=== PATIENT | male | born 1940 | race Two or more races ===

== ENCOUNTER 2017-06-12 14:31 | Emergency (ER) | payer BC ==
[~2017-06-12] VITALS: Ht 182.9 cm; Wt 94.8 kg
[2017-06-12] MEDS ORDERED: cloNIDine HCL 0.1 MG TAB PO ONE (20:45)
[2017-06-12 20:51] LABS: Basophils # (auto) 0.1 uL; Hemoglobin 10.8 g/dL (13.5-17.5); Mean Corpuscular Volume 62.6 fL (80.0-100.0); Monocytes # (auto) 0.6 uL; Nucleated Red Blood Cells % 0.1 %; Red Cell Distribution Width 17.2 % (11.8-14.3)
[2017-06-12 20:52] LABS: Eosinophils # (auto) 0.3 uL; Eosinophils % (auto) 4.3 % (0.0-7.0); Hematocrit 34.2 % (41.0-53.0); Lymphocytes # (auto) 1.3 uL; Lymphocytes % (auto) 16.6 % (10.0-50.0); Mean Corpuscular Hemoglobin 19.9 pg (28.0-32.0); Mean Corpuscular Hgb Conc. 31.8 g/dL (32.0-36.0); Mean Platelet Volume 8.3 fL (6.9-10.8); Monocytes % (auto) 7.8 % (0.0-12.0); Neutrophils # (auto) 5.3 uL; Neutrophils % (auto) 70.3 % (37.0-80.0); Platelet Count (auto) 206 10^3/uL (140-450); White Blood Cell 7.6 10^3/uL (4.4-10.8)
[2017-06-12 20:57] LABS: INR 1.03 (0.9-1.15); Partial Thromboplastin Time 24.5 sec (22.64-33.71); Prothrombin Time 11.2 sec (9.37-12.3)
[2017-06-12 21:46] VITALS: BP 195/118
[2017-06-12 22:49] LABS: Hypochromia Marked; Microcytosis Marked; Platelet Estimate Adequate; Poikilocytosis Moderate
[2017-06-12 23:07] LABS: Urine Bilirubin Negative (Negative); Urine Blood 1+ /uL (Negative); Urine Color Yellow (Yellow); Urine Glucose Normal (Normal); Urine Ketone Negative (Negative); Urine Mucus FEW (None Seen); Urine Nitrite Negative (Negative); Urine RBC 9 /hpf (0 - 3); Urine Squamous Epithelial Cell FEW /hpf (<5); Urine Urobilinogen Normal (Negative); Urine pH 5.5 (5.0-8.0)
== END 2017-06-12 22:47 | disposition home or self-care (01) ==
LOC: ER 14:31
DX: N20.0 Calculus of kidney (principal); K57.30 Diverticulosis of large intestine without perforation or abscess without bleeding; Z90.89 Acquired absence of other organs
CPT/HCPCS: 36415; 74176; 81001; 85025; 85610; 85730

== ENCOUNTER → 2017-06-13 | Outpatient (CLI) | payer BC ==
[2017-06-13 13:41] LABS: Albumin 3.8 g/dL (3.4-5.0); BUN/Creatinine Ratio 14.5; Bilirubin, Total 2.1 mg/dL (0.2-1.0); Calcium 8.6 mg/dL (8.5-10.1); Potassium 3.7 mmol/L (3.5-5.1); Total Protein 6.8 g/dL (6.4-8.2); Uric Acid 8.6 mg/dL (3.5-7.2)
== END | disposition home or self-care (01) ==
LOC: LAB 13:16
PROVIDERS: ATTEND Internal Medicine
DX: D64.9 Anemia, unspecified (principal); N40.0 Benign prostatic hyperplasia without lower urinary tract symptoms
CPT/HCPCS: 36415; 80053; 82607; 83540; 83550; 84153; 84550

== ENCOUNTER → 2020-01-14 | Emergency (ER) | payer BC ==
[~2020-01-14] VITALS: Ht 182.9 cm; Wt 88.9 kg
[~2020-01-14] MED LIST: TAMS0.4C36 PO
[2020-01-14 09:12] LABS: Basophils # (auto) 0.1 10 ^3/uL (0-0.2); Eosinophils # (auto) 0.3 10 ^3/uL (0-0.8); Monocytes # (auto) 0.5 10 ^3/uL (0-1.3)
[2020-01-14 09:13] LABS: Eosinophils % (auto) 5.1 % (0.0-7.0); Hemoglobin 10.6 g/dL (13.5-17.5); Lymphocytes # (auto) 1.2 10 ^3/uL (0.4-5.4); Lymphocytes % (auto) 19.9 % (10.0-50.0); Mean Corpuscular Hemoglobin 19.3 pg (28.0-32.0); Mean Corpuscular Hgb Conc. 31.3 g/dL (32.0-36.0); Mean Corpuscular Volume 61.7 fL (80.0-100.0); Monocytes % (auto) 8.3 % (0.0-12.0); Neutrophils % (auto) 65.7 % (37.0-80.0); Nucleated Red Blood Cells % 0.1 %; Platelet Count (auto) 142 10^3/uL (140-450); Red Cell Distribution Width 16.6 % (11.8-14.3)
[2020-01-14 09:32] LABS: Alanine Aminotransferase 19 U/L (16-61); Albumin 3.5 g/dL (3.4-5.0); Anion Gap 5 (5-15); Aspartate Aminotransferase 16 U/L (15-37); BUN/Creatinine Ratio 18.2; Blood Urea Nitrogen 24 mg/dL (7-18); Calcium 8.5 mg/dL (8.5-10.1); Carbon Dioxide 27 mmol/L (21-32); Chloride 110 mmol/L (98-107); GFR African American 67 mL/min; GFR Non-African American 55 mL/min; Glucose 110 mg/dL (74-106); Potassium 3.9 mmol/L (3.5-5.1); Sodium 142 mmol/L (136-145)
[2020-01-14 09:37] LABS: Alkaline Phosphatase 64 U/L (45-117); Bilirubin, Total 1.2 mg/dL (0.2-1.0); Total Protein 6.9 g/dL (6.4-8.2)
[2020-01-14 10:32] VITALS: BP 147/78
[2020-01-14 10:37] LABS: Urine WBC None Seen /hpf (0 - 3)
[2020-01-14 10:43] LABS: Urine Bacteria NONE SEEN /hpf (None Seen); Urine Blood Negative /uL (Negative); Urine Hyaline Cast FEW /lpf (0 - 2)
== END | disposition home or self-care (01) ==
LOC: ER 08:23
DX: R42 Dizziness and giddiness (principal); I10 Essential (primary) hypertension
CPT/HCPCS: 36415; 70450; 71045; 80053; 81001; 83735; 84484; 85025; 93005

== ENCOUNTER → 2020-02-09 | Outpatient (CLI) | payer BC ==
[2020-02-09 10:13] LABS: Basophils # (auto) 0.1 10 ^3/uL (0-0.2); Neutrophils # (auto) 4.7 10 ^3/uL (1.6-8.6)
[2020-02-09 10:15] LABS: Basophils % (auto) 1.4 % (0.0-2.0); Eosinophils # (auto) 0.5 10 ^3/uL (0-0.8); Eosinophils % (auto) 7.4 % (0.0-7.0); Hematocrit 34.9 % (41.0-53.0); Hemoglobin 10.9 g/dL (13.5-17.5); Lymphocytes # (auto) 0.9 10 ^3/uL (0.4-5.4); Lymphocytes % (auto) 13.5 % (10.0-50.0); Mean Corpuscular Hemoglobin 19.4 pg (28.0-32.0); Mean Corpuscular Hgb Conc. 31.2 g/dL (32.0-36.0); Mean Corpuscular Volume 62.1 fL (80.0-100.0); Monocytes # (auto) 0.5 10 ^3/uL (0-1.3); Neutrophils % (auto) 69.7 % (37.0-80.0); Nucleated Red Blood Cells % 0.2 %; Platelet Count (auto) 166 10^3/uL (140-450); Red Blood Cells 5.63 10^6/uL (4.5-5.90); White Blood Cell 6.7 10^3/uL (4.4-10.8)
[2020-02-09 10:28] LABS: INR 1.03 (0.9-1.15)
[2020-02-09 10:36] LABS: Albumin 3.8 g/dL (3.4-5.0); Calcium 8.6 mg/dL (8.5-10.1); Potassium 3.6 mmol/L (3.5-5.1)
[2020-02-09 10:41] LABS: BUN/Creatinine Ratio 18.9; Bilirubin, Total 1.6 mg/dL (0.2-1.0); Total Protein 7.2 g/dL (6.4-8.2)
[2020-02-09 10:47] LABS: Free T4 (Free Thyroxine) 0.79 ng/dL (0.89-1.76); Prostate Specific Antigen 1.05 ng/mL (0.0-4.0)
== END | disposition home or self-care (01) ==
LOC: LAB 09:50
PROVIDERS: ATTEND Internal Medicine
DX: Z01.818 Encounter for other preprocedural examination (principal); D56.9 Thalassemia, unspecified; I10 Essential (primary) hypertension; R35.1 Nocturia
CPT/HCPCS: 36415; 80053; 80061; 84153; 84439; 84443; 85025; 85610; 85652

== ENCOUNTER 2020-03-17 07:58 | Emergency (ER) | payer BC ==
[~2020-03-17] VITALS: Ht 182.9 cm; Wt 88.5 kg
[2020-03-17 08:40] LABS: Basophils # (auto) 0.1 10 ^3/uL (0-0.2); Basophils % (auto) 1.1 % (0.0-2.0); Eosinophils # (auto) 0.4 10 ^3/uL (0-0.8); Eosinophils % (auto) 5.9 % (0.0-7.0); Hematocrit 34.5 % (41.0-53.0); Hemoglobin 10.7 g/dL (13.5-17.5); Lymphocytes # (auto) 1.3 10 ^3/uL (0.4-5.4); Lymphocytes % (auto) 19.3 % (10.0-50.0); Mean Corpuscular Hemoglobin 19.2 pg (28.0-32.0); Mean Corpuscular Hgb Conc. 31.1 g/dL (32.0-36.0); Mean Corpuscular Volume 61.8 fL (80.0-100.0); Monocytes # (auto) 0.5 10 ^3/uL (0-1.3); Monocytes % (auto) 7.1 % (0.0-12.0); Neutrophils # (auto) 4.7 10 ^3/uL (1.6-8.6); Neutrophils % (auto) 66.6 % (37.0-80.0); Nucleated Red Blood Cells % 0.2 %; Platelet Count (auto) 219 10^3/uL (140-450); Red Blood Cells 5.59 10^6/uL (4.5-5.90); Red Cell Distribution Width 16.5 % (11.8-14.3)
[2020-03-17 08:48] LABS: Albumin 3.7 g/dL (3.4-5.0); Anion Gap 6 (5-15); Calcium 8.8 mg/dL (8.5-10.1); Carbon Dioxide 27 mmol/L (21-32); Chloride 106 mmol/L (98-107); Glucose 113 mg/dL (74-106); Potassium 4.1 mmol/L (3.5-5.1); Sodium 139 mmol/L (136-145)
[2020-03-17 08:53] LABS: Alkaline Phosphatase 61 U/L (45-117); Aspartate Aminotransferase 19 U/L (15-37); Blood Urea Nitrogen 27 mg/dL (7-18); GFR African American 62 mL/min; GFR Non-African American 51 mL/min; Total Protein 7.3 g/dL (6.4-8.2)
[2020-03-17 09:08] LABS: Alanine Aminotransferase 19 U/L (16-61); Bilirubin, Total 1.5 mg/dL (0.2-1.0)
[2020-03-17 09:16] VITALS: BP 140/90
== END 2020-03-17 09:18 | disposition home or self-care (01) ==
LOC: ER 07:58
DX: R42 Dizziness and giddiness (principal); R51 Headache; I10 Essential (primary) hypertension; Z90.89 Acquired absence of other organs
CPT/HCPCS: 36415; 70450; 71045; 80053; 84484; 85025

== ENCOUNTER 2020-04-17 07:19 | Emergency (ER) | payer BC | END 2020-04-17 08:06 | disposition left against medical advice (07) | LOC: ER 07:19 | DX: R03.0 Elevated blood-pressure reading, without diagnosis of hypertension (principal); Z53.21 Procedure and treatment not carried out due to patient leaving prior to being seen by health care provider ==

== ENCOUNTER 2020-05-20 14:52 | Emergency (ER) | payer BC ==
[~2020-05-20] VITALS: Ht 182.9 cm; Wt 89.8 kg
[2020-05-20] MEDS ORDERED: cloNIDine HCL 0.1 MG TAB PO ONE (15:15)
[2020-05-20 16:26] LABS: Hematocrit 33.2 % (41.0-53.0); Lymphocytes # (auto) 1.1 10 ^3/uL (0.4-5.4); Neutrophils # (auto) 4.5 10 ^3/uL (1.6-8.6); Nucleated Red Blood Cells % 0.2 %
[2020-05-20 16:29] LABS: Basophils # (auto) 0.1 10 ^3/uL (0-0.2); Basophils % (auto) 1.2 % (0.0-2.0); Eosinophils # (auto) 0.5 10 ^3/uL (0-0.8); Eosinophils % (auto) 6.8 % (0.0-7.0); Hemoglobin 10.2 g/dL (13.5-17.5); Lymphocytes % (auto) 16.7 % (10.0-50.0); Mean Corpuscular Hemoglobin 19.2 pg (28.0-32.0); Mean Corpuscular Hgb Conc. 30.9 g/dL (32.0-36.0); Mean Corpuscular Volume 62.3 fL (80.0-100.0); Monocytes # (auto) 0.5 10 ^3/uL (0-1.3); Monocytes % (auto) 8.2 % (0.0-12.0); Neutrophils % (auto) 67.1 % (37.0-80.0); Platelet Count (auto) 228 10^3/uL (140-450); Red Blood Cells 5.33 10^6/uL (4.5-5.90); Red Cell Distribution Width 17.3 % (11.8-14.3); White Blood Cell 6.7 10^3/uL (4.4-10.8)
[2020-05-20 16:49] LABS: Albumin 4.1 g/dL (3.4-5.0); Anion Gap 8 (5-15); Blood Urea Nitrogen 21 mg/dL (7-18); Calcium 8.8 mg/dL (8.5-10.1); Carbon Dioxide 27 mmol/L (21-32); Chloride 105 mmol/L (98-107); Glucose 90 mg/dL (74-106); Potassium 3.8 mmol/L (3.5-5.1); Sodium 140 mmol/L (136-145)
[2020-05-20 16:56] LABS: Alanine Aminotransferase 17 U/L (16-61); Alkaline Phosphatase 57 U/L (45-117); Aspartate Aminotransferase 13 U/L (15-37); BUN/Creatinine Ratio 16.9; Bilirubin, Total 1.7 mg/dL (0.2-1.0); GFR African American 72 mL/min; GFR Non-African American 60 mL/min; Total Protein 7.1 g/dL (6.4-8.2)
[2020-05-20 18:00] VITALS: BP 143/77
== END 2020-05-20 18:59 | disposition home or self-care (01) ==
LOC: ER 14:52
DX: I10 Essential (primary) hypertension (principal)
CPT/HCPCS: 36415; 71045; 80053; 84484; 85025; 93005

== ENCOUNTER → 2020-05-20 | Outpatient (CLI) | payer BC ==
[2020-05-20 09:34] LABS: Hemoglobin 10.2 g/dL (13.5-17.5); Lymphocytes # (auto) 1.2 10 ^3/uL (0.4-5.4); Monocytes # (auto) 0.5 10 ^3/uL (0-1.3); Nucleated Red Blood Cells % 0.1 %; Red Blood Cells 5.24 10^6/uL (4.5-5.90)
[2020-05-20 09:38] LABS: Basophils # (auto) 0.1 10 ^3/uL (0-0.2); Basophils % (auto) 1.2 % (0.0-2.0); Eosinophils # (auto) 0.4 10 ^3/uL (0-0.8); Eosinophils % (auto) 7.5 % (0.0-7.0); Hematocrit 32.7 % (41.0-53.0); Lymphocytes % (auto) 19.7 % (10.0-50.0); Mean Corpuscular Hemoglobin 19.4 pg (28.0-32.0); Mean Corpuscular Hgb Conc. 31.2 g/dL (32.0-36.0); Mean Corpuscular Volume 62.4 fL (80.0-100.0); Monocytes % (auto) 8.1 % (0.0-12.0); Neutrophils # (auto) 3.8 10 ^3/uL (1.6-8.6); Neutrophils % (auto) 63.5 % (37.0-80.0); Platelet Count (auto) 214 10^3/uL (140-450); Red Cell Distribution Width 17.4 % (11.8-14.3)
== END | disposition home or self-care (01) ==
LOC: LAB 09:05
PROVIDERS: ATTEND Internal Medicine
DX: H53.2 Diplopia (principal)
CPT/HCPCS: 36415; 84439; 84443; 85025; 85652

== ENCOUNTER 2020-07-07 02:10 | Inpatient (IN) | payer BC ==
[~2020-07-07] VITALS: Ht 182.9 cm; Wt 88.4 kg
[2020-07-07] MEDS ORDERED: cloNIDine HCL 0.1 MG TAB PO ONE ×2 (02:30→18:15)
[2020-07-07 02:58] LABS: Urine Bacteria FEW /hpf (None Seen); Urine Blood Negative /uL (Negative); Urine Specific Gravity 1.008 (1.001-1.035); Urine WBC <1 /hpf (0 - 3)
[2020-07-07 04:10] LABS: Basophils # (auto) 0.1 10 ^3/uL (0-0.2); Basophils % (auto) 0.9 % (0.0-2.0); Eosinophils # (auto) 0.4 10 ^3/uL (0-0.8); Hematocrit 30.5 % (41.0-53.0); Hemoglobin 9.9 g/dL (13.5-17.5); Lymphocytes # (auto) 1.6 10 ^3/uL (0.4-5.4); Lymphocytes % (auto) 21.3 % (10.0-50.0); Mean Corpuscular Hemoglobin 20.1 pg (28.0-32.0); Mean Corpuscular Hgb Conc. 32.4 g/dL (32.0-36.0); Mean Corpuscular Volume 61.9 fL (80.0-100.0); Monocytes # (auto) 0.7 10 ^3/uL (0-1.3); Monocytes % (auto) 9.4 % (0.0-12.0); Neutrophils # (auto) 4.8 10 ^3/uL (1.6-8.6); Neutrophils % (auto) 63.4 % (37.0-80.0); Nucleated Red Blood Cells % 0.1 %; Platelet Count (auto) 226 10^3/uL (140-450); Red Blood Cells 4.92 10^6/uL (4.5-5.90); White Blood Cell 7.5 10^3/uL (4.4-10.8)
[2020-07-07 04:28] LABS: INR 1.06 (0.9-1.15); Partial Thromboplastin Time 24.8 sec (23.0-31.2)
[2020-07-07 04:34] LABS: Anion Gap 7 (5-15); BUN/Creatinine Ratio 21.9; Blood Urea Nitrogen 30 mg/dL (7-18); Carbon Dioxide 26 mmol/L (21-32); Chloride 107 mmol/L (98-107); Glucose 100 mg/dL (74-106); Potassium 3.9 mmol/L (3.5-5.1); Sodium 140 mmol/L (136-145)
[2020-07-07 04:35] LABS: Albumin 3.5 g/dL (3.4-5.0); Calcium 8.6 mg/dL (8.5-10.1); GFR African American 64 mL/min; GFR Non-African American 53 mL/min; Magnesium 2.3 mg/dL (1.6-2.6)
[2020-07-07 04:40] LABS: Alanine Aminotransferase 16 U/L (16-61); Alkaline Phosphatase 55 U/L (45-117); Aspartate Aminotransferase 13 U/L (15-37); Bilirubin, Total 1.4 mg/dL (0.2-1.0); Total Protein 6.2 g/dL (6.4-8.2)
[2020-07-07] MEDS ORDERED: LISI-275 PO (06:09)
[2020-07-07] MEDS ORDERED: NITROGLYCERIN 0.4 MG SL TAB SL PRN (07:00)
[2020-07-07] MEDS ORDERED: MORPHINE SULF INJ 2 MG/ML SYRINGE 1ML IV PRN (07:00)
[2020-07-07] MEDS ORDERED: ACETAMINOPHEN 325 MG TAB PO PRN (07:00)
[2020-07-07] MEDS ORDERED: ONDANSETRON HCL 4 MG/2 ML VIAL IV PRN (07:00)
[2020-07-07] MEDS ORDERED: PANTOPRAZOLE 40 MG TAB PO SCH (10:00)
[2020-07-07] MEDS ORDERED: LISINOPRIL 5 MG TAB PO SCH (10:00)
[2020-07-07] MEDS ORDERED: ENOXAPARIN SOD 40 MG/0.4 ML SYRINGE SC SCH (10:00)
[2020-07-07] MEDS ORDERED: LISINOPRIL 10 MG TAB PO ONE (11:15)
[2020-07-07] MEDS ORDERED: hydrALAZINE HCL 10 MG TAB PO PRN (11:15)
[2020-07-07] MEDS ORDERED: amLODIPine BESYLATE 5 MG TAB PO ONE (11:15)
--- NOTE | 2020-07-07 11:21 | NUR ---
report Report received from ED LEANNE Márquez.
--- NOTE | 2020-07-07 11:47 | NUR ---
Telemetry admit from ER GABRIELLE DRAKE admitted to Telemetry unit after SBAR received. Patient oriented to AIDA walden RN, unit, room, bed, and unit policies regarding patient care and visiting hours. Patient now on continuous telemetry monitoring, tele box # 47 and telemetry reading on arrival to unit is NSR. Patient weighed by bedscale and encouraged to call if they need something. All questions and concerns addressed, patient verbalized understanding.
--- NOTE | 2020-07-07 11:50 | NUR ---
Physician rounding. Dr. Shipman at bedside. MD updated patient on plan of care, per MD patient can be discharged today. Will follow through.
[2020-07-07 13:07] VITALS: BP 179/94
[2020-07-07 13:34] VITALS: BP 144/82
--- NOTE | 2020-07-07 13:34 | NUR ---
Spoke with charge coordinator Spoke with Bob charge coordinator. Informed Bob that stated that patient can be D/C'd today, but this RN has not received D/C orders. Per Bob if orders have not yet been placed after 1400, clarify with MD. Will follow through.
--- NOTE | 2020-07-07 14:20 | NUR ---
Left message to Called Dr. Shipman regarding D/C. Awaiting call back.
--- NOTE | 2020-07-07 14:50 | NUR ---
Spoke with Provider Spoke with TRANSFER PROFESSOR Sim regarding D/C. Per TRANSFER PROFESSOR she will contact Dr. Haynes to have echo read prior to D/C for D/C. Will notify Dr. Shipman.
--- NOTE | 2020-07-07 14:55 | NUR ---
Notified Notified Dr. Shipman regarding YING landin. Per MD he will review the chart for D/C clearance.
[2020-07-07] MEDS ORDERED: AML5T PO (15:21)
[2020-07-07] MEDS ORDERED: LISI-648 PO (15:21)
--- NOTE | 2020-07-07 15:21 | NUR ---
Received call from Received call fro Dr. Shipman. Per MD patient is clear for D/C and to follow up with PCP on Saturday. Per MD if echo is not read patient can follow up with PCP for result and further treatments.
[2020-07-07 15:49] LABS: Folate (Folic Acid) 11.3 ng/mL (5.38-24)
[2020-07-07 16:35] VITALS: BP 184/107
[2020-07-07 17:26] VITALS: BP 163/96
--- NOTE | 2020-07-07 17:40 | NUR ---
spoke with US Received call from [facility]. Notified them that patient is D/C today.
[2020-07-07 17:45] VITALS: BP 163/96
--- NOTE | 2020-07-07 17:50 | NUR ---
MD charles Notified MD of patients B/P. Awaiting call back. Addendum: 07/07/20 at 1802 by AIDA CHI RN B/P on reassessment after PRN medication was given, was 163/96, 61bpm.
--- NOTE | 2020-07-07 17:58 | NUR ---
received call back updated regarding patients B/P. New orders received, will follow through. Addendum: 07/07/20 at 1810 by AIDA CHI RN MD STATED PATIENT IS STILL CLEAR FOR D/C.
[2020-07-07] MEDS ORDERED: TAMSULOSIN HYDROCHLORIDE 0.4 MG CAP PO SCH (18:00)
--- NOTE | 2020-07-07 18:33 | NUR ---
Discharge note Discharge instructions given as ordered. Encourage to follow up with PMD as instructed. All questions and concerns addressed. Patient verbalized understanding. IV removed with catheter intact, pressure dressing applied. Telemetry unit returned to ICU. Patient ambulated to main [facility] with all personal belongings, accompanied by staff member. No distress noted at time of departure.
[2020-07-08] MEDS ORDERED: LISINOPRIL 20 MG TAB PO SCH (10:00)
[2020-07-08] MEDS ORDERED: amLODIPine BESYLATE 5 MG TAB PO SCH (10:00)
== END 2020-07-07 18:33 | disposition home or self-care (01) | DRG 305 ==
LOC: ER 02:10 → EDBD 02:10 → EDUNIT# 02:10 → TELE 02:11 → TELE-CENTR 11:30
PROVIDERS: ADMIT Nurse Practitioner; ATTEND Internal Medicine
DX: I16.0 Hypertensive urgency (principal); I10 Essential (primary) hypertension; N18.9 Chronic kidney disease, unspecified; R00.1 Bradycardia, unspecified; E66.9 Obesity, unspecified; E78.5 Hyperlipidemia, unspecified; I12.9 Hypertensive chronic kidney disease with stage 1 through stage 4 chronic kidney disease, or unspecified chronic kidney disease; N18.30 Chronic kidney disease, stage 3 unspecified; N40.0 Benign prostatic hyperplasia without lower urinary tract symptoms; Z82.49 Family history of ischemic heart disease and other diseases of the circulatory system; Z90.49 Acquired absence of other specified parts of digestive tract
CPT/HCPCS: 36415; 71045; 80053; 81001; 82306; 82607; 82746; 83735; 83880; 84484; 85025; 85610; 85730; 93306; 93926; 96372; G0378

== ENCOUNTER 2020-07-15 08:49 | Emergency (ER) | payer BC ==
[~2020-07-15] VITALS: Ht 185.4 cm; Wt 88.5 kg
[~2020-07-15 08:49] MED LIST changes: +AML5T PO; +LISI-648 PO
[2020-07-15 09:10] VITALS: BP 124/94
[2020-07-15 09:36] LABS: Basophils # (auto) 0.1 10 ^3/uL (0-0.2); Lymphocytes # (auto) 0.9 10 ^3/uL (0.4-5.4); Mean Corpuscular Hgb Conc. 31.1 g/dL (32.0-36.0); Monocytes # (auto) 0.5 10 ^3/uL (0-1.3); White Blood Cell 6.6 10^3/uL (4.4-10.8)
[2020-07-15 09:38] LABS: Basophils % (auto) 0.8 % (0.0-2.0); Eosinophils # (auto) 0.3 10 ^3/uL (0-0.8); Hematocrit 33.1 % (41.0-53.0); Hemoglobin 10.3 g/dL (13.5-17.5); Lymphocytes % (auto) 13.5 % (10.0-50.0); Mean Corpuscular Hemoglobin 19.4 pg (28.0-32.0); Mean Corpuscular Volume 62.2 fL (80.0-100.0); Monocytes % (auto) 7.6 % (0.0-12.0); Neutrophils # (auto) 4.8 10 ^3/uL (1.6-8.6); Neutrophils % (auto) 73.1 % (37.0-80.0); Nucleated Red Blood Cells % 0.2 %; Platelet Count (auto) 227 10^3/uL (140-450); Red Blood Cells 5.32 10^6/uL (4.5-5.90); Red Cell Distribution Width 16.6 % (11.8-14.3)
[2020-07-15 09:58] LABS: Albumin 3.8 g/dL (3.4-5.0); Anion Gap 4 (5-15); Aspartate Aminotransferase 11 U/L (15-37); Blood Urea Nitrogen 24 mg/dL (7-18); Calcium 8.7 mg/dL (8.5-10.1); Carbon Dioxide 30 mmol/L (21-32); Chloride 108 mmol/L (98-107); GFR African American 67 mL/min; GFR Non-African American 55 mL/min; Glucose 116 mg/dL (74-106); Sodium 142 mmol/L (136-145)
[2020-07-15 10:03] LABS: Alanine Aminotransferase 19 U/L (16-61); Alkaline Phosphatase 64 U/L (45-117); Bilirubin, Total 1.6 mg/dL (0.2-1.0); Total Protein 6.8 g/dL (6.4-8.2)
== END 2020-07-15 10:54 | disposition home or self-care (01) ==
LOC: ER 08:49
DX: F41.9 Anxiety disorder, unspecified (principal); I10 Essential (primary) hypertension; Z79.899 Other long term (current) drug therapy
CPT/HCPCS: 36415; 80053; 84484; 85025; 93005

== ENCOUNTER 2020-10-08 09:12 | Emergency (ER) | payer BC, MEDICARE ==
[~2020-10-08] VITALS: Ht 182.9 cm; Wt 79.4 kg
[2020-10-08] MEDS ORDERED: SODIUM CHLORIDE 0.9% 500 ML IV ONE (09:45)
[2020-10-08 10:33] LABS: Urine Bacteria NONE SEEN /hpf (None Seen); Urine Blood Negative /uL (Negative); Urine Specific Gravity 1.016 (1.001-1.035); Urine WBC 1 /hpf (0 - 3)
[2020-10-08 10:34] LABS: Lymphocytes # (auto) 1.2 10 ^3/uL (0.4-5.4); Monocytes # (auto) 0.5 10 ^3/uL (0-1.3); Neutrophils # (auto) 4.8 10 ^3/uL (1.6-8.6); Nucleated Red Blood Cells % 0.1 %
[2020-10-08 10:35] LABS: Albumin 3.8 g/dL (3.4-5.0); Anion Gap 5 (5-15); Blood Urea Nitrogen 27 mg/dL (7-18); Calcium 8.7 mg/dL (8.5-10.1); Carbon Dioxide 27 mmol/L (21-32); Chloride 107 mmol/L (98-107); Glucose 103 mg/dL (74-106); Potassium 4.1 mmol/L (3.5-5.1); Sodium 139 mmol/L (136-145)
[2020-10-08 10:36] LABS: Basophils # (auto) 0 10 ^3/uL (0-0.2); Basophils % (auto) 0.4 % (0.0-2.0); Eosinophils # (auto) 0.5 10 ^3/uL (0-0.8); Eosinophils % (auto) 6.5 % (0.0-7.0); Hematocrit 32.2 % (41.0-53.0); Hemoglobin 10.4 g/dL (13.5-17.5); Lymphocytes % (auto) 17.5 % (10.0-50.0); Mean Corpuscular Hemoglobin 19.8 pg (28.0-32.0); Mean Corpuscular Hgb Conc. 32.3 g/dL (32.0-36.0); Mean Corpuscular Volume 61.4 fL (80.0-100.0); Monocytes % (auto) 7.7 % (0.0-12.0); Neutrophils % (auto) 67.9 % (37.0-80.0); Platelet Count (auto) 255 10^3/uL (140-450); Red Blood Cells 5.24 10^6/uL (4.5-5.90); Red Cell Distribution Width 16.4 % (11.8-14.3); White Blood Cell 7.1 10^3/uL (4.4-10.8)
[2020-10-08 10:42] LABS: Alanine Aminotransferase 19 U/L (16-61); Alkaline Phosphatase 63 U/L (45-117); Aspartate Aminotransferase 16 U/L (15-37); BUN/Creatinine Ratio 21.6; Bilirubin, Total 1.2 mg/dL (0.2-1.0); GFR African American 71 mL/min; GFR Non-African American 59 mL/min; Total Protein 7.2 g/dL (6.4-8.2)
[2020-10-08] MEDS ORDERED: LISINOPRIL 10 MG TAB PO ONE (11:15)
[2020-10-08 12:10] VITALS: BP 138/82
== END 2020-10-08 12:24 | disposition home or self-care (01) ==
LOC: ER 09:12
DX: I10 Essential (primary) hypertension (principal); H60.61 Unspecified chronic otitis externa, right ear; Z90.49 Acquired absence of other specified parts of digestive tract; Z79.899 Other long term (current) drug therapy
CPT/HCPCS: 36415; 70450; 80053; 81001; 84443; 84484; 85025; 96360; 99284; J7040

== ENCOUNTER → 2020-10-18 | Outpatient (CLI) | payer BC | END | disposition home or self-care (01) | LOC: LAB 14:58 | PROVIDERS: ATTEND Internal Medicine | DX: I71.2 Thoracic aortic aneurysm, without rupture (principal) | CPT/HCPCS: 36415; 82565; 84520 ==

== ENCOUNTER 2020-11-10 12:34 | Inpatient (IN) | payer BC ==
[~2020-11-10] VITALS: Ht 180.3 cm; Wt 89.3 kg
[2020-11-10 13:36] LABS: Basophils # (auto) 0.1 10 ^3/uL (0-0.2); Eosinophils # (auto) 0.3 10 ^3/uL (0-0.8); Nucleated Red Blood Cells % 0.1 %; White Blood Cell 6.9 10^3/uL (4.4-10.8)
[2020-11-10 13:38] LABS: Basophils % (auto) 1.2 % (0.0-2.0); Eosinophils % (auto) 3.9 % (0.0-7.0); Hematocrit 31.5 % (41.0-53.0); Lymphocytes % (auto) 14.8 % (10.0-50.0); Mean Corpuscular Hemoglobin 19.3 pg (28.0-32.0); Mean Corpuscular Hgb Conc. 31.7 g/dL (32.0-36.0); Mean Corpuscular Volume 60.7 fL (80.0-100.0); Monocytes # (auto) 0.5 10 ^3/uL (0-1.3); Monocytes % (auto) 6.5 % (0.0-12.0); Neutrophils # (auto) 5.1 10 ^3/uL (1.6-8.6); Neutrophils % (auto) 73.6 % (37.0-80.0); Platelet Count (auto) 295 10^3/uL (140-450); Red Blood Cells 5.18 10^6/uL (4.5-5.90); Red Cell Distribution Width 16.8 % (11.8-14.3)
[2020-11-10 13:50] LABS: Albumin 3.6 g/dL (3.4-5.0); Anion Gap 8 (5-15); Blood Urea Nitrogen 22 mg/dL (7-18); Calcium 8.6 mg/dL (8.5-10.1); Carbon Dioxide 25 mmol/L (21-32); Chloride 107 mmol/L (98-107); Glucose 106 mg/dL (74-106); Magnesium 2.1 mg/dL (1.6-2.6); Sodium 140 mmol/L (136-145)
[2020-11-10 13:52] LABS: Alanine Aminotransferase 22 U/L (16-61); Aspartate Aminotransferase 21 U/L (15-37); BUN/Creatinine Ratio 18.8; GFR African American 77 mL/min; GFR Non-African American 64 mL/min
[2020-11-10 13:57] LABS: Alkaline Phosphatase 64 U/L (45-117); Bilirubin, Total 1.2 mg/dL (0.2-1.0); Total Protein 7.1 g/dL (6.4-8.2)
[2020-11-10] MEDS ORDERED: NITROGLYCERIN 0.4 MG SL TAB SL PRN (14:30)
[2020-11-10] MEDS ORDERED: ALBUTEROL SULF HFA 90MCG INH 200DOSE IN PRN (14:30)
[2020-11-10] MEDS ORDERED: MORPHINE SULF INJ 2 MG/ML SYRINGE 1ML IV PRN (14:30)
[2020-11-10 14:58] LABS: Urine WBC None Seen /hpf (0 - 3)
[2020-11-10] MEDS ORDERED: LISINOPRIL 10 MG TAB PO ONE (15:00)
[2020-11-10] MEDS ORDERED: LACTULOSE 20Gm/30ML SOLN PO PRN (15:00)
[2020-11-10] MEDS ORDERED: traMADol HCL 50 MG TAB PO PRN (15:00)
[2020-11-10] MEDS ORDERED: hydrALAZINE HCL 20 MG/ML VL IV PRN (15:00)
[2020-11-10] MEDS ORDERED: ONDANSETRON HCL 4 MG/2 ML VIAL IV PRN (15:00)
[2020-11-10] MEDS ORDERED: TEMAZEPAM 15 MG CAP PO PRN (15:00)
[2020-11-10] MEDS ORDERED: ACETAMINOPHEN 500 MG TAB PO PRN (15:00)
[2020-11-10] MEDS ORDERED: amLODIPine BESYLATE 5 MG TAB PO ONE (15:00)
[2020-11-10 15:11] LABS: Urine Bacteria NONE SEEN /hpf (None Seen); Urine Blood Negative /uL (Negative); Urine Specific Gravity 1.013 (1.001-1.035)
[2020-11-10 15:37] LABS: INR 1.02 (0.9-1.15); Partial Thromboplastin Time 24.6 sec (23.0-31.2)
[2020-11-10] MEDS ORDERED: IOPAMIDOL 76 % (ISOVUE-370) 100ML BTL IV ONE (16:51)
[2020-11-10 17:00] VITALS: BP 161/101
[2020-11-10] MEDS: hydrALAZINE HCL 20 MG/ML VL IV PRN ×2 (18:01→21:26)
[2020-11-10 18:30] LABS: Hemoglobin 9.8 g/dL (13.5-17.5)
[2020-11-10 20:00] VITALS: BP 161/91
[2020-11-10] MEDS: FLORASTOR (S. BOULARDII) 250 MG CAP PO SCH (21:26)
[2020-11-10] MEDS: SODIUM CHLOR 0.9% PF (SALINE LOCK) 10ML VIAL/SYR IV SCH (21:27)
[2020-11-10 22:00] VITALS: BP 161/91
[2020-11-10] MEDS ORDERED: ENOXAPARIN SOD 40 MG/0.4 ML SYRINGE SC SCH (22:00)
[2020-11-10] MEDS ORDERED: BUDESONIDE (INHALATION) 180 MCG IH IN SCH (22:00)
[2020-11-11 01:50] LABS: Hematocrit 30.3 % (41.0-53.0); Hemoglobin 9.9 g/dL (13.5-17.5)
[2020-11-11] MEDS: SODIUM CHLOR 0.9% PF (SALINE LOCK) 10ML VIAL/SYR IV SCH ×2 (05:05→09:21)
[2020-11-11 05:18] VITALS: BP 158/97
[2020-11-11 07:19] LABS: Basophils # (auto) 0.1 10 ^3/uL (0-0.2); Eosinophils # (auto) 0.4 10 ^3/uL (0-0.8); Lymphocytes # (auto) 1.6 10 ^3/uL (0.4-5.4); White Blood Cell 9.5 10^3/uL (4.4-10.8)
[2020-11-11 07:22] LABS: Basophils % (auto) 1.1 % (0.0-2.0); Eosinophils % (auto) 4.5 % (0.0-7.0); Hemoglobin 10.4 g/dL (13.5-17.5); Lymphocytes % (auto) 16.9 % (10.0-50.0); Mean Corpuscular Hemoglobin 19.2 pg (28.0-32.0); Mean Corpuscular Hgb Conc. 31.6 g/dL (32.0-36.0); Mean Corpuscular Volume 60.8 fL (80.0-100.0); Monocytes # (auto) 0.7 10 ^3/uL (0-1.3); Monocytes % (auto) 7.4 % (0.0-12.0); Neutrophils # (auto) 6.7 10 ^3/uL (1.6-8.6); Neutrophils % (auto) 70.1 % (37.0-80.0); Platelet Count (auto) 318 10^3/uL (140-450); Red Blood Cells 5.42 10^6/uL (4.5-5.90); Red Cell Distribution Width 16.7 % (11.8-14.3)
[2020-11-11 09:06] VITALS: BP 164/87
[2020-11-11] MEDS: levoFLOXacin 500MG 100 ML IV SCH ×2 (09:06→10:00)
[2020-11-11] MEDS: PANTOPRAZOLE 40 MG TAB PO SCH ×2 (09:20→09:36)
[2020-11-11] MEDS: FLORASTOR (S. BOULARDII) 250 MG CAP PO SCH ×2 (09:20→09:36)
[2020-11-11] MEDS ORDERED: ASCORBIC ACID 1,000 MG TAB PO SCH (10:00)
[2020-11-11] MEDS ORDERED: ZINC SULFATE 220mg CAP or TAB PO SCH (10:00)
[2020-11-11] MEDS ORDERED: LISINOPRIL 10 MG TAB PO SCH (10:00)
[2020-11-11] MEDS ORDERED: CHOLECALCIFEROL (VITD3) 2,000 UNIT CAP/TAB PO SCH (10:00)
[2020-11-11] MEDS ORDERED: amLODIPine BESYLATE 5 MG TAB PO SCH (10:00)
[2020-11-11 11:16] VITALS: BP 164/74
== END 2020-11-11 13:09 | disposition home or self-care (01) | DRG 308 ==
LOC: ER 12:34 → TELE 12:35 → TELE-EAST 16:36 → TELE-CENTR 11-11 02:16
PROVIDERS: ADMIT Internal Medicine; ATTEND Internal Medicine
DX: R00.1 Bradycardia, unspecified (principal); J18.9 Pneumonia, unspecified organism; I16.0 Hypertensive urgency; I10 Essential (primary) hypertension; N40.0 Benign prostatic hyperplasia without lower urinary tract symptoms; I77.819 Aortic ectasia, unspecified site; Z20.822 Contact with and (suspected) exposure to COVID-19; F41.9 Anxiety disorder, unspecified; Z82.49 Family history of ischemic heart disease and other diseases of the circulatory system; Z98.42 Cataract extraction status, left eye; Z90.49 Acquired absence of other specified parts of digestive tract
CPT/HCPCS: 36415; 71045; 71275; 80053; 81001; 82550; 82728; 83735; 84484; 85014; 85018; 85025; 85045; 85379; 85610; 85730; 86141; 87426; 96374; G0378; J1956

== ENCOUNTER 2024-07-23 05:15 | Inpatient (IN) | payer BC, OTHER ==
[~2024-07-23] VITALS: Ht 180.3 cm; Wt 86.4 kg
[~2024-07-23 05:15] MED LIST changes: -LISI-648 PO; +LISI10TA34 PO; -TAMS0.4C36 PO; +TAMS0.4C39 PO
[2024-07-23] MEDS: cloNIDine HCL 0.1 MG TAB PO ONE (05:45)
[2024-07-23 05:55] VITALS: TEMP 98.9
[2024-07-23 06:00] VITALS: PULSE 72; RESP 16; O2SAT 99
--- NOTE | 2024-07-23 06:18 | ECG ---
[facility] Test Date: 2024-07-23 Test Time: 05:38:51 Pat Name: GABRIELLE DRAKE Department: ER Room: Gender: M Survey Methodologist: ER : 1940 Requested By: JENNYFER TAYLOR Order Number: [id number] Reading MD: Measurements Intervals [place] Rate: 65 P: 19 MT: 178 QRS: 28 QRSD: 92 T: 111 QT: 468 QTc: 487 Interpretive Statements Sinus rhythm Abnormal R-wave progression, early transition Nonspecific repol abnormality, diffuse leads Borderline prolonged QT interval Please click the below link to view image of tracing.
--- NOTE | 2024-07-23 06:58 | ED.PDOC ---
History of Present Illness HPI Comments 83 y.o male with PMH of HTN, anxiety and tinnitus, presents to the ED via EMS for an evaluation of hypertension. Patient reports around 2300 last night he took his Flomax medication, went to sleep and woke up to urinate but had minimal output. Patient was dribbling but had the urgency to continue for about 3-4 hours after. Patient states he had tremors, a headache and had a sudden loud ringing to his ears. Patient reports having previous tinnitus flare ups but nothing similar to today's episode. He denies any dizziness, chest pain, SOB, nausea, vomiting, dysuria, fever, or chills. Upon ED arrival, EMS reported patient had a blood pressure of 209/97. Patient denies HTN medication use as he is managing pressure via diet. No other complaints or symptoms reported. Chief Complaint: High Blood Pressure Time Seen by MD: 06:26 Primary Care Provider: OSMIN Reviewed Notes: Nurses Notes, Typists Supervisor Notes, Medications, Allergies Allergies: Coded Allergies: Aspirin (Verified Allergy, Unknown, 07/23/24) Home Meds Active Scripts Amlodipine Besylate (NORVASC TABLET) 5 Mg Tb, 1 TAB PO DAILY, #30 TAB 5 Refills Prov:KY ROMERO MD 07/07/20 Lisinopril (Lisinopril) 10 Mg Tab, 10 MG PO DAILY for 30 Days, #30 TAB Prov:KY ROMERO MD 07/07/20 Reported Medications Tamsulosin Hcl (Tamsulosin Hcl) 0.4 Mg Cap, 0.4 MG PO QPM, CAP 05/23/19 Information Source: Patient Mode of Arrival: EMS Severity: Moderate Timing: Hours Duration: Since onset Past Medical History PAST MEDICAL HISTORY: Anxiety, HTN Surgical History: Appendectomy Surgical History (Other): nasal Family History Family History: Family hx of heart wilson Social History Smoker: Non-Smoker Alcohol: Denies ETOH Use Drugs: Denies Drug Use Lives In: Home Constitutional: denies: chills, diaphoresis, fatigue, fever, malaise, sweats, weakness, others EENTM: reports: ear ringing; denies: blurred vision, double vision, ear bleeding, ear discharge, ear drainage, ear pain, eye pain, eye redness, hearing loss, mouth pain, mouth swelling, nasal discharge, nose bleeding, nose co ngestion, nose pain, photophobia, tearing, throat pain, throat swelling, voice changes, others Respiratory: denies: cough, hemoptysis, orthopnea, SOB at rest, shortness of breath, SOB with excertion, stridor, wheezing, others Cardiovascular: denies: chest pain, dizzy spells, diaphoresis, Dyspnea on exertion, edema, irregular heart beat, left arm pain, lightheadedness, palpitations, PND, syncope, others Gastrointestinal: denies: abdomen distended, abdominal pain, blood streaked bowels, constipated, diarrhea, dysphagia, difficulty swallowing, hematemesis, melena, nausea, poor appetite, poor fluid intake, rectal bleeding, rectal pain, vomiting, others Genitourinary: reports: urgency; denies: burning, dysuria, flank pain, frequency, hematuria, incontinence, penile discharge, penile sore, pain, testicle pain, testicle swelling, others Neurological: reports: headache; denies: dizziness, fainting, left sided numbness, left sided weakness, numbness, paresthesia, pre-existing deficit, right sided numbness, right sided weakness, seizure, speech problems, tingling, tremors, weakness, others Musculoskeletal: denies: back pain, gout, joint pain, joint swelling, muscle pain, muscle stiffness, neck pain, others Integumetry: denies: bruises, change in color, change in hair/nails, dryness, laceration, lesions, lumps, rash, wounds, others Allergic/Immunocompromised: denies: Difficulty Healing, Frequent Infections, Hives, Itching, others Hematologic/Lymphatic: denies: anemia, blood clots, easy bleeding, easy bruising, swollen glands, others Endocrine: denies: excessive hunger, excessive sweating, excessive thirst, excessive urination, flushing, intolerance to cold, intolerance to heat, unexplained weight gain, unexplained weight loss, others Psychiatric: denies: anxiety, bipolar disorder, depression, hopeless, panic disorder, schizophrenia, sleepless, suicidal, others All Other Systems: Reviewed and Negative Physical Exam General Appearance: Moderate Distress HEENT: Normal ENT Inspection, Pharynx Normal, TMs Normal Neck: Full Range of Motion, Non-Tender, Normal, Normal Inspection Respiratory: Chest Non-Tender, Lungs Clear, No Accessory Muscle Use, No Respiratory Distress, Normal Breath Sounds Cardiovascular: No Edema, No JVD, No Murmur, No Gallop, Normal Peripheral Pulses, Regular Rate/Rhythm Breast Exam: Deferred Gastrointestinal: No Organomegaly, Non Tender, No Pulsatile Mass, Normal Bowel Sounds, Soft Genitalia: Deferred Pelvic: Deferred Rectal: Deferred Extremities: No calf tenderness, Normal capillary refill, Normal inspection, Normal range of motion, Non-tender, No pedal edema Musculoskeletal : Apperance: Normal Neurologic: Alert, adaptive physical education specialist II-XII nml as Tested, No Motor Deficits, Normal Affect, Normal Mood, No Sensory Deficits Cerebellar Function: Normal Reflexes: Normal Skin: Dry, Normal Color, Warm Peripheral Pulses: 3+ Radial (R), 3+ Radial (L) Lymphatic: No Adenopathy Was a procedure done? Was a procedure done?: No Differential Dx Considerations may include: HTN essential, medication non compliance, tinnitus spike, clustered headache, migraine, urine retention, Urethritis, UTI X-Ray, Labs, Meds, VS Vital Signs Date Time Temp Pulse Resp B/P (MAP) Pulse Ox O2 Delivery O2 Flow Rate FiO2 07/23/24 06:00 72 16 99 Room Air* 0 21 07/23/24 05:55 98.9 65 17 199/91 (127) 96 98.9 07/23/24 05:45 185/73 07/23/24 05:38 65 07/23/24 05:21 97.8 62 18 206/97 (133) 94 Current Medications Medications (Trade) Dose Ordered Sig/Kalie Route Start Time Stop Time Status Last Admin Clonidine HCl (Catapres Tablet) 0.3 mg ONCE ONCE PO 07/23/24 05:45 07/23/24 05:46 DC 07/23/24 05:45 Patient alert. Blood pressure elevated. Was given clonidine. Vitals stable. Blood pressure continues to be elevated. He was also shaking. Possibly will need MRI. Urology consultation for cystoscopy. Was given Flomax. Reviewed his previous visit. Explained to the patient. Continue cardiac monitoring. Time of 1ST Reevaluation: 06:49 Reevaluation 1ST: Unchanged Patient Education/Counseling: Diagnosis, Treatment, Prognosis Family Education/Counseling: No Family Present Departure 1 Departure Time of Disposition: 07:14 Impression: Primary Impression: Hypertensive emergency Additional Impression: Prostate hypertrophy Disposition: ADMITTED INPATIENT Admit to: Med Surg Condition: Guarded Critical Care Note Critical Care Time?: Yes (45 min-critical care time only) Stability Stability form required: No I personally scribed for JENNYFER TAYLOR MD ([facility]) on 07/23/24 at 06:58. Electronically submitted by Sonam Rucker ([facility]). JENNYFER TAYLOR MD Jul 23, 2024 06:58
[2024-07-23 07:30] VITALS: PULSE 59; RESP 17; O2SAT 96
[2024-07-23] MEDS: LABETALOL HCL 20 MG/4 ML VL IV ONE (08:10)
[2024-07-23 08:58] LABS: Potassium 3.6 mmol/L (3.5-5.1); Sodium 143 mmol/L (136-145)
[2024-07-23 08:59] LABS: Calcium 9.1 mg/dL (8.7-10.4); Carbon Dioxide 26 mmol/L (20-31)
[2024-07-23 09:04] LABS: BUN/Creatinine Ratio 16.4 (10.0-20.0); Blood Urea Nitrogen 20 mg/dL (9-23); Glucose 136 mg/dL (74-106)
[2024-07-23 09:11] LABS: Basophils # (auto) 0.1 10 ^3/uL (0-0.2); Eosinophils # (auto) 0.5 10 ^3/uL (0-0.8); Eosinophils % (auto) 7.5 % (0.0-7.0); Hematocrit 32.4 % (41.0-53.0); Hemoglobin 10.2 g/dL (13.5-17.5); Lymphocytes # (auto) 1.2 10 ^3/uL (0.4-5.4); Lymphocytes % (auto) 17.9 % (10.0-50.0); Mean Corpuscular Hemoglobin 19.7 pg (28.0-32.0); Mean Corpuscular Hgb Conc. 31.5 g/dL (32.0-36.0); Mean Corpuscular Volume 62.5 fL (80.0-100.0); Monocytes # (auto) 0.5 10 ^3/uL (0-1.3); Neutrophils # (auto) 4.4 10 ^3/uL (1.6-8.6); Neutrophils % (auto) 65.6 % (37.0-80.0); Nucleated Red Blood Cells % 0.1 %; Platelet Count (auto) 212 10^3/uL (140-450); Red Blood Cells 5.19 10^6/uL (4.5-5.90); Red Cell Distribution Width 16.8 % (11.8-14.3); White Blood Cell 6.7 10^3/uL (4.4-10.8)
--- NOTE | 2024-07-23 09:30 | DVH ---
Exam: CT CT AB PEL WO CON-NO ORAL OR IV History: urinary retention and urgency Comparison Study: None Technique: Multidetector spiral CT of the abdomen and pelvis was performed from lung bases to pubic symphysis. Imaging was performed without IV contrast. Axial, coronal and sagittal multiplanar reform ats were obtained from the axial data set by the technologist. Radiation dose : Abdomen/Pelvis: CTDIvol 13 mGy, DLP 859.77 mGy*cm. Findings: Evaluation of solid organs is limited due to lack of intravenous contrast use. Lung Bases: No acute or significant lung base finding. Normal heart size. No pleural or pericardial effusion. Liver: The liver is normal in size. No focal lesions. Gallbladder and biliary Tree: Unremarkable Spleen: Unremarkable Pancreas: The pancreas is grossly normal in appearance. Adrenal Glands: Sub cm right adrenal nodule. Kidneys: Punctate nonobstructive bilateral renal calculi. No hydronephrosis. Bladder: Grossly unremarkable for degree of distention. Bowel: The stomach is grossly normal in appearance. Small bowel and colon are normal in caliber and d istribution. The appendix is not visualized; however, no secondary findings of acute appendicitis id entified. Ascites: Absent Lymphadenopathy: No mesenteric, retroperitoneal or periportal lymphadenopathy. Abdominal wall and Mesentery: Unremarkable. Vasculature: The visualized abdominal aorta is normal in size and caliber. There is extensive athero sclerotic calcification of the aorta and its branches. Evaluation of abdominal and pelvic vessels is limited due to lack of intravenous contrast. Pelvic Organs: Prostate is enlarged. Musculoskeletal: No aggressive focal bony lesions, acute fractures or dislocation. IMPRESSION: 1. No acute abdominal or pelvic findings. Punctate bilateral renal calculi. Prostatomegaly. Subcentim eter right adrenal nodule. Radiation optimization: All CT scans at this facility use at least one of these dose optimization fredy hniques: Automated exposure control mA and/or kV adjustment per patient size (includes targeted exams where dose is matched to clinical indication) or iterative reconstruction. HS:Y
[2024-07-23 09:36] LABS: Anion Gap 8 (5-15); Chloride 109 mmol/L (98-107)
[2024-07-23 10:00] VITALS: BP 151/82; PULSE 69; RESP 17; O2SAT 94
[2024-07-23] MEDS ORDERED: HYDROcodone-ACET 5/325MG TAB PO PRN (11:00)
[2024-07-23] MEDS ORDERED: NITROGLYCERIN 0.4 MG SL TAB SL PRN (11:00)
[2024-07-23] MEDS ORDERED: ONDANSETRON HCL 4 MG/2 ML VIAL IV PRN (11:00)
[2024-07-23] MEDS ORDERED: MORPHINE SULFATE INJ 2 MG/ml SYRG IV PRN (11:00)
[2024-07-23] MEDS ORDERED: cloNIDine HCL 0.1 MG TAB PO PRN (11:00)
[2024-07-23 11:37] LABS: Urine Bacteria None Seen /hpf (None Seen)
[2024-07-23] MEDS: LOSARTAN POTASSIUM 25 MG TAB PO SCH (11:45)
[2024-07-23 12:19] LABS: Urine Blood Negative /uL (Negative); Urine Clarity Clear (Clear); Urine Color Light-Yellow (Yellow); Urine Protein, UAD Negative (Negative); Urine Specific Gravity 1.016 (1.001-1.035); Urine Urobilinogen Normal (Negative); Urine WBC 1 /hpf (0 - 3); Urine pH 5.5 (5.0-9.0)
--- NOTE | 2024-07-23 12:34 | DVHHP2 ---
History of Present Illness Reason for Visit: Hypertensive crisis History of Present Illness 83-year-old male presented to the ED via EMS for evaluation for hypertension. Patient reports he had increased tinnitus, and checked his blood pressure which was high, patient called the EMS and patient had a blood pressure 209/97. Patient states he did not have any headache or other symptoms at the time. Patient states he has been under extreme stress due to his who has cancer. Patient states he ate a frozen piece of pie which he has never eaten before and thinks that is what caused his high blood pressure due to salt intake. Patient does not take antihypertensive medication as he states he has been managing his blood pressure via diet, patient states he was just seen by his primary care provider in December and they did a full workup, patient states that his primary care told him his blood pressures were doing well and she just needed to run melissa e tests to make sure she did not need to put him on blood pressure medications. Patient reports the last several days he has had some tremors, patient also has BPH and takes Flomax, patient states sometimes he feels like he needs to urinate but only has a small amount. Patient does take Flomax every night, and patient was urinating well up until this episode. Patient states now he is urinating normally since being in the ER. Patient is very resistive to taking antihypertensive medication, patient was educated on how antihypertensive medication works well in the hospital and why his blood pressure has normalized now, and why maintenance antihypertensives are needed, however patient states he will not take any. Patient denies chest pain, headache, dizziness, diaphoresis, shortness of breath, abdominal pain, no nausea, vomiting, fever, or chills endorsed by the patient. Patient was admitted for further evaluation medical management. Past Medical History Anxiety, HTN Past Surgical History Appendectomy Family History nasal Smoke: No ALCOHOL: none Drugs: None Lives: with Family Review of Systems Constitutional: No: Fever, Chills, Sweats, Weakness, Malaise, Other Eyes: No: Pain, Vision change, Conjunctivae inflammation, Eyelid inflammation, Other, Redness ENT: No: Ear pain, Ear discharge, Nose pain, Nose discharge, Nose congestion, Mouth pain, Mouth swelling, Throat pain, Throat swelling, Other Respiratory: No: Cough, Dry, Shortness of breath, SOB with excertion, Wheezing, Hemoptysis, Pleuritic Pain, Sputum, Wheezing, Other Cardiovascular: No: Chest Pain, Palpitations, Orthopnea, Paroxysmal Noc. Dyspnea, Edema, Lt Headedness, Other Gastrointestinal: No: Nausea, Vomiting, Abdominal Pain, Diarrhea, Constipation, Melena, Hematochezia, Other Genitourinary: No Dysuria, No Frequency, No Incontinence, No Hematuria, No Retention, No Other Musculoskeletal: No: other, neck pain, shoulder pain, arm pain, back pain, hand pain, leg pain, foot pain Skin: No: Rash, Lesions, Jaundice, Bruising, Other Neurological: No: Weakness, Numbness, Incoordination, Change in speech, Confusion, Seizures, Other Allergies: Coded Allergies: Aspirin (Verified Allergy, Unknown, 07/23/24) Lisinopril (Verified Adverse Reaction, Intermediate, 07/23/24) increased patients tinnitis, unable to tolerate Medications Current Medications Medications Dose Ordered Sig/Kalie Route Start Time Stop Time Status Last Admin Dose Admin Acetaminophen/ Hydrocodone Bitart 1 tab Q4HP PRN PO 07/23/24 11:00 Ondansetron HCl 4 mg Q4HP PRN IV 07/23/24 11:00 Nitroglycerin 0.4 mg Q5MINP PRN SL 07/23/24 11:00 Morphine Sulfate 2 mg Q30M PRN IV 07/23/24 11:00 Clonidine HCl 0.2 mg Q6HP PRN PO 07/23/24 11:00 Losartan Potassium 50 mg DAILY PO 07/23/24 11:00 Exam Vital Signs Vital Signs Date Time Temp Pulse Resp B/P (MAP) Pulse Ox O2 Delivery O2 Flow Rate FiO2 07/23/24 10:00 69 17 151/82 (105) 94 07/23/24 07:30 Room Air* 0 21 07/23/24 05:55 98.9 98.9 General Appearance: Alert, Oriented X3, Cooperative, No acute distress HEENT: Atraumatic, PERRLA, EOMI, Mucous membr. moist/pink Respiratory: Clear to auscultation Cardiovascular: Regular rate, Normal S1, Normal S2, No murmurs Abdominal: Normal bowel sounds, Soft, No tenderness, No hepatospenomegaly, No masses Extremities: No clubbing, No cyanosis, No edema, Normal pulses, No tenderness/swelling Skin: No rashes, No breakdown, No significant lesion Neuro: Normal gait, Normal speech, Strength at 5/5 X4 ext, Normal tone, Sensation intact, Cranial nerves 3-12 NL Psych/Mental Status: Mental status NL, Mood NL Labs/Xrays Labs, imaging and ED notes reviewed Labs Test 07/23/24 10:00 07/23/24 08:34 Range/Units White Blood Count 6.7 4.4-10.8 10^3/uL Red Blood Count 5.19 4.5-5.90 10^6/uL Hemoglobin 10.2 L 13.5-17.5 g/dL Hematocrit 32.4 L 41.0-53.0 % Mean Corpuscular Volume 62.5 L 80.0-100.0 fL Mean Corpuscular Hemoglobin 19.7 L 28.0-32.0 pg Mean Corpuscular Hemoglobin Concent 31.5 L 32.0-36.0 g/dL Red Cell Distribution Width 16.8 H 11.8-14.3 % Platelet Count 212 140-450 10^3/uL Mean Platelet Volume 8.4 6.9-10.8 fL Neutrophils (%) (Auto) 65.6 37.0-80.0 % Lymphocytes (%) (Auto) 17.9 10.0-50.0 % Monocytes (%) (Auto) 8.0 0.0-12.0 % Eosinophils (%) (Auto) 7.5 H 0.0-7.0 % Basophils (%) (Auto) 1.0 0.0-2.0 % Neutrophils # (Auto) 4.4 1.6-8.6 10 ^3/uL Lymphocytes # (Auto) 1.2 0.4-5.4 10 ^3/uL Monocytes # (Auto) 0.5 0-1.3 10 ^3/uL Eosinophils # (Auto) 0.5 0-0.8 10 ^3/uL Basophils # (Auto) 0.1 0-0.2 10 ^3/uL Nucleated Red Blood Cells 0.1 % Sodium Level 143 136-145 mmol/L Potassium Level 3.6 3.5-5.1 mmol/L Chloride Level 109 H 98-107 mmol/L Carbon Dioxide Level 26 20-31 mmol/L Anion Gap 8 5-15 Blood Urea Nitrogen 20 9-23 mg/dL Creatinine 1.22 0.700-1.30 mg/dL Glomerular Filtration Rate Calc 58 >90 mL/min BUN/Creatinine Ratio 16.4 10.0-20.0 Serum Glucose 136 H 74-106 mg/dL Calcium Level 9.1 8.7-10.4 mg/dL Assessment/Plan Assessment/Plan Hypertensive crisis Admit to telemetry Patient has allergy to lisinopril Can certainly started Clonidine p.r.n. Blood pressure managed currently Patient refusing blood pressure meds. ACS protocol BPH Continue Flomax CT abdomen pelvis shows enlarged prostate and punctate kidney stones FEN/PPX Cardiac diet VTE in GI prophylaxis not indicated Plan discussed with: Patient My Orders Orders - JOHNJAMARCUS Procedure Category Date Status Time Ct Ab Pel Wo Con-No CT 07/23/24 Resulted Oral Or Iv 08:43 Admit ADMIT 07/23/24 Transmitted 10:47 Code Status CODE 07/23/24 Transmitted 10:47 Vital Signs [facility] 07/23/24 In Process 10:47 Review Orders With [facility] 07/23/24 In Process Adm. 10:47 Bedrest With Bathroom [facility] 07/23/24 In Process Privileg 10:47 Notify Of Changes [facility] 07/23/24 In Process From Base 10:47 Advance Directive [facility] 07/23/24 In Process 10:47 Basic Metabolic Panel LAB 07/24/24 Verified 04:00 Complete Blood Count LAB 07/24/24 Verified 04:00 Patient Condition ORDERS 07/23/24 Transmitted 10:47 Allergies SANJUANA 07/23/24 In Process 10:47 Hydrocodone-Acet PHA 07/23/24 In Process 5/325mg Tab ([place] 11:00 Ondansetron Hcl PHA 07/23/24 In Process (Zofran) 11:00 Cardiac DIET 07/23/24 Transmitted Diet-2gna,Lofat,Lochol Lunch Nitroglycerin PHA 07/23/24 In Process Sublingual (Ntrostat 11:00 Morphine Sulfate PHA 07/23/24 In Process Injection 11:00 Stat Ekg For Chest [facility] 07/23/24 In Process Pain 10:47 Notify Of Changes [facility] 07/23/24 In Process From Base 10:47 Animal Researcher For [facility] 07/23/24 In Process 24 Hours 10:47 Emergency Dysrhythmia [facility] 07/23/24 In Process Protocol 10:47 Rhythm Strips Once [facility] 07/23/24 In Process Every Shift 10:47 Oxygen By Nasal RT 07/23/24 Transmitted Cannula 10:47 Clonidine Hcl Tablet PHA 07/23/24 In Process (Catapres Tablet) 11:00 Losartan Tablet PHA 07/23/24 In Process (Cozaar Tablet) 11:00 Date of Service: Jul 23, 2024 Billing Provider: JAMARCUS JOHN Common Visit Codes: [id number] INP/OBS CARE (HIGH) JAMARCUS JOHN Jul 23, 2024 12:34
== END 2024-07-23 12:30 | disposition left against medical advice (07) | DRG 305 ==
LOC: ER 05:15 → EDBD 05:15 → TELE 10:47
PROVIDERS: ADMIT Registered Nurse General Practice; ATTEND Registered Nurse General Practice
DX: I16.1 Hypertensive emergency (principal); F41.9 Anxiety disorder, unspecified; I10 Essential (primary) hypertension; Z53.29 Procedure and treatment not carried out because of patient's decision for other reasons; N40.0 Benign prostatic hyperplasia without lower urinary tract symptoms; N20.0 Calculus of kidney; Z88.6 Allergy status to analgesic agent; Z88.8 Allergy status to other drugs, medicaments and biological substances; Z79.899 Other long term (current) drug therapy
CPT/HCPCS: 36415; 74176; 80048; 81001; 85025; 93005; 96374; 99291; G0378

== ENCOUNTER 2025-01-25 01:16 | Emergency (ER) | payer MEDICARE, OTHER ==
[~2025-01-25] VITALS: Ht 182.9 cm; Wt 87.3 kg
[2025-01-25 02:06] LABS: Urine Bacteria MANY /hpf (None Seen); Urine Blood TRACE /uL (Negative); Urine Clarity Turbid (Clear); Urine Color Light-Yellow (Yellow); Urine Mucus FEW (None Seen); Urine Protein, UAD TRACE (Negative); Urine Specific Gravity 1.015 (1.001-1.035); Urine Squamous Epithelial Cell None Seen /hpf (<5); Urine Urobilinogen Normal (Negative); Urine WBC 214 /HPF (0-3)
--- NOTE | 2025-01-25 02:12 | ED.PDOC ---
History of Present Illness HPI Comments 84 y/o M presents with c/o urine retention, with associated lower abdominal pain. Patient reports onset of symptoms at around midnight after dealing with some mild burning dysuria, earlier yesterday. Denies any nausea, vomiting, fever, chills, or further associated symptoms. He endorses being evaluated at an urgent care facility on January 13, 2025 for similar urinary symptoms and placed on a antibiotic, that he reports on only taking one dose of, due to it causing unintentional diarrhea side effect. He then reports on being evaluated, again, for urinary symptoms at [facility] on January 23, 2025, where he was found without a UTI then. Reports upcoming appointment with outpatient urology on January 27, 2025. Chief Complaint: Urinary Time Seen by MD: 01:30 Primary Care Provider: OSMIN Reviewed Notes: Nurses Notes, Medications, Allergies Allergies: Coded Allergies: Aspirin (Verified Allergy, Unknown, 07/23/24) Lisinopril (Verified Adverse Reaction, Intermediate, 07/23/24) increased patients tinnitis, unable to tolerate Home Meds Active Scripts Amlodipine Besylate (NORVASC TABLET) 5 Mg Tb, 1 TAB PO DAILY, #30 TAB 5 Refills Prov:KY ROMERO MD 07/07/20 Lisinopril (Lisinopril) 10 Mg Tab, 10 MG PO DAILY for 30 Days, #30 TAB Prov:KY ROMERO MD 07/07/20 Reported Medications Tamsulosin Hcl (Tamsulosin Hcl) 0.4 Mg Cap, 0.4 MG PO QPM, CAP 05/23/19 Information Source: Patient Mode of Arrival: Ambulatory Severity: Moderate Timing: Hours Duration: Since onset Prehospital treatment: None Past Medical History PAST MEDICAL HISTORY: Anxiety, HTN Surgical History: Appendectomy Family History Family History: Family hx of heart wilson Social History Smoker: Non-Smoker Alcohol: Denies ETOH Use Drugs: Denies Drug Use Lives In: Home All Other Systems: Reviewed and Negative (Comprehensive systems review obtained and negative except for what is stated in the HPI.) Physical Exam General Appearance: No Apparent Distress, Normal HEENT: Normal ENT Inspection, Pharynx Normal, TMs Normal Neck: Full Range of Motion, Non-Tender, Normal, Normal Inspection Respiratory: Chest Non-Tender, Lungs Clear, No Accessory Muscle Use, No Respiratory Distress, Normal Breath Sounds Cardiovascular: No Edema, No JVD, No Murmur, No Gallop, Normal Peripheral Pulses, Regular Rate/Rhythm Breast Exam: Deferred Gastrointestinal: No Organomegaly, Non Tender, No Pulsatile Mass, Normal Bowel Sounds, Soft Genitalia: Deferred Pelvic: Deferred Rectal: Deferred Extremities: No calf tenderness, Normal capillary refill, Normal inspection, Normal range of motion, Non-tender, No pedal edema Musculoskeletal : Apperance: Normal Neurologic: Alert, director of community center II-XII nml as Tested, No Motor Deficits, Normal Affect, Normal Mood, No Sensory Deficits Cerebellar Function: Normal Reflexes: Normal Skin: Dry, Normal Color, Warm Lymphatic: No Adenopathy Was a procedure done? Was a procedure done?: No Differential Dx Considerations may include: UTI, ureteral obstruction, nephrolithiasis, among others X-Ray, Labs, Meds, VS Vital Signs Date Time Temp Pulse Resp B/P (MAP) Pulse Ox O2 Delivery O2 Flow Rate FiO2 01/25/25 01:44 98.2 78 16 152/91 (111) 96 98.2 Lab Test 01/25/25 01:58 Range/Units Urine Color Light-yellow Yellow Urine Clarity Turbid H Clear Urine pH 6.0 5.0-9.0 Urine Specific [place] 1.015 1.001-1.035 Urine Protein Trace H Negative Urine Ketones Negative Negative Urine Blood Trace H Negative /uL Urine Nitrite 2+ H Negative Urine Bilirubin Negative Negative Urine Urobilinogen Normal Negative mg/dL Urine Leukocyte Esterase 3+ Negative /uL Urine RBC 7 0 - 3 /hpf Urine Microscopic WBC 214 H 0-3 /HPF Urine Squamous Epithelial Cells None seen <5 /hpf Urine Bacteria Many H None Seen /hpf Urine Mucus Few None Seen Urine Glucose Normal Normal mg/dL X-Ray, Labs, Meds, VS Comment vitals reviewed UA shows + nitrates pt to be treated with rocephin sent home with macrobid Time of 1ST Reevaluation: 02:00 Reevaluation 1ST: Unchanged Patient Education/Counseling: Treatment, Need For Follow Up (/u with pcp in 2 days ) Family Education/Counseling: No Family Present Departure 1 Departure Time of Disposition: 02:56 Impression: Primary Impression: UTI (urinary tract infection) Qualified Codes: N30.01 - Acute cystitis with hematuria Disposition: 01 HOME / SELF CARE / HOMELESS Condition: Stable e-Prescriptions Nitrofurantoin Monohydrate Mac (Macrobid) 100 Mg Cap 100 MG PO BID for 5 Days, #10 CAP Prov: JULIA MCWILLIAMS 01/25/25 Discharged With: Self Critical Care Note Critical Care Time?: No Stability Stability form required: No Heart Score Heart Score: Heart Score Response (Comments) Value History N/A 0 EKG N/A 0 Age N/A 0 Risk Factors N/A 0 Troponin N/A 0 Total 0 I personally scribed for JULIA MCWILLIAMS ([email or web address]) on 01/25/25 at 02:12. Electronically submitted by Andrew Alexander ([email or web address]). JULIA MCWILLIAMS January 25, 2025 02:12
[2025-01-25] MEDS ORDERED: NITR-87 PO (02:58)
[2025-01-25] MEDS: cefTRIAXone SOD 1,000 MG VL IM ONE (04:15)
[2025-01-25 04:27] VITALS: BP 142/62; TEMP 98.2
[2025-01-25 04:30] VITALS: PULSE 77; RESP 16; O2SAT 96
== END 2025-01-25 04:27 | disposition home or self-care (01) ==
LOC: ER 01:16
DX: N39.0 Urinary tract infection, site not specified (principal); F41.9 Anxiety disorder, unspecified; I10 Essential (primary) hypertension; Z90.49 Acquired absence of other specified parts of digestive tract; Z88.6 Allergy status to analgesic agent; Z79.899 Other long term (current) drug therapy; Z88.1 Allergy status to other antibiotic agents
CPT/HCPCS: 81001; 96372; 99283; J0696

== ENCOUNTER 2025-03-14 10:33 | Emergency (ER) | payer OTHER ==
[~2025-03-14] VITALS: Ht 182.9 cm; Wt 86.0 kg
[~2025-03-14 10:33] MED LIST changes: +NITR-87 PO
--- NOTE | 2025-03-14 10:52 | ED.PDOC ---
Bhupinder. trauma (HPI) HPI Comments 84 y.o male presents to the ED for an evaluation of a mechanical fall last night around 2300. Patient reports chasing a bug at home, slipped and fell face forward and presents with right eye ecchymosis/hematoma. Patient denies LOC, head pain, nausea, vomiting, chest pain, lightheadedness or dizziness. Patient was able to drive himself to the ED and is ambulatory without assistance. Chief Complaint: Fall Injury Time Seen by MD: 10:45 Primary Care Provider: OSMIN Reviewed notes: Nurses Notes, Medications, Allergies Allergies: Coded Allergies: Aspirin (Verified Allergy, Unknown, 07/23/24) Lisinopril (Verified Adverse Reaction, Intermediate, 07/23/24) increased patients tinnitis, unable to tolerate Home Meds Active Scripts Nitrofurantoin Monohydrate Mac (Macrobid) 100 Mg Cap, 100 MG PO BID for 5 Days, #10 CAP Prov:JULIA MCWILLIAMS 01/25/25 Amlodipine Besylate (NORVASC TABLET) 5 Mg Tb, 1 TAB PO DAILY, #30 TAB 5 Refills Prov:KY ROMERO MD 07/07/20 Lisinopril (Lisinopril) 10 Mg Tab, 10 MG PO DAILY for 30 Days, #30 TAB Prov:KY ROMERO MD 07/07/20 Reported Medications Tamsulosin Hcl (Tamsulosin Hcl) 0.4 Mg Cap, 0.4 MG PO QPM, CAP 05/23/19 Information Source: Patient Mode of Arrival: Ambulatory Severity: Moderate Timing: Days (1) Duration: Since onset Location of laceration: None Mechanism: Fall Associated signs and symtoms: None Past Medical History PAST MEDICAL HISTORY: Anxiety Past Medical History (Other): prostate Surgical History: Appendectomy Surgical History (Other): rhinoplasty Family History Family History: Family hx of heart wilson Social History Smoker: Non-Smoker Alcohol: Denies ETOH Use Drugs: Denies Drug Use Lives In: Home Constitutional: denies: chills, diaphoresis, fatigue, fever, malaise, sweats, weakness, others EENTM: denies: blurred vision, double vision, ear bleeding, ear discharge, ear drainage, ear pain, ear ringing, eye pain, eye redness, hearing loss, mouth pain, mouth swelling, nasal discharge, nose bleeding, nose congestion, nose pain, photophobia, tearing, throat pain, throat swelling, voice changes, others Respiratory: denies: cough, hemoptysis, orthopnea, SOB at rest, shortness of breath, SOB with excertion, stridor, wheezing, others Cardiovascular: denies: chest pain, dizzy spells, diaphoresis, Dyspnea on exer tion, edema, irregular heart beat, left arm pain, lightheadedness, palpitations, PND, syncope, others Gastrointestinal: denies: abdomen distended, abdominal pain, blood streaked bowels, constipated, diarrhea, dysphagia, difficulty swallowing, hematemesis, melena, nausea, poor appetite, poor fluid intake, rectal bleeding, rectal pain, vomiting, others Genitourinary: denies: burning, dysuria, flank pain, frequency, hematuria, incontinence, penile discharge, penile sore, pain, testicle pain, testicle swelling, urgency, others Neurological: denies: dizziness, fainting, headache, left sided numbness, left sided weakness, numbness, paresthesia, pre-existing deficit, right sided numbness, right sided weakness, seizure, speech problems, tingling, tremors, weakness, others Musculoskeletal: denies: back pain, gout, joint pain, joint swelling, muscle pain, muscle stiffness, neck pain, others Integumetry: reports: others (right sided eye hematoma ); denies: bruises, change in color, change in hair/nails, dryness, laceration, lesions, lumps, rash, wounds Allergic/Immunocompromised: denies: Difficulty Healing, Frequent Infections, Hives, Itching, others Hematologic/Lymphatic: denies: anemia, blood clots, easy bleeding, easy bru ising, swollen glands, others Endocrine: denies: excessive hunger, excessive sweating, excessive thirst, e xcessive urination, flushing, intolerance to cold, intolerance to heat, unexplained weight gain, unexplained weight loss, others Psychiatric: denies: anxiety, bipolar disorder, depression, hopeless, panic disorder, schizophrenia, sleepless, suicidal, others All Other Systems: Reviewed and Negative Physical Exam General Appearance: No Apparent Distress HEENT: Pharynx Normal, TMs Normal, Other (Swelling around the right orbital region) Neck: Full Range of Motion, Non-Tender, Normal, Normal Inspection Respiratory: Chest Non-Tender, Lungs Clear, No Accessory Muscle Use, No Respiratory Distress, Normal Breath Sounds Cardiovascular: No Edema, No JVD, No Murmur, No Gallop, Normal Peripheral Pulses, Regular Rate/Rhythm Breast Exam: Deferred Gastrointestinal: No Organomegaly, Non Tender, No Pulsatile Mass, Normal Bowel Sounds, Soft Genitalia: Deferred Pelvic: Deferred Rectal: Deferred Extremities: No calf tenderness, Normal capillary refill, Normal inspection, Normal range of motion, Non-tender, No pedal edema Musculoskeletal : Apperance: Normal Neurologic: Alert, accounting manager cpa II-XII nml as Tested, No Motor Deficits, Normal Affect, Normal Mood, No Sensory Deficits Cerebellar Function: Normal Reflexes: Normal Skin: Dry, Normal Color, Warm Lymphatic: No Adenopathy Was a procedure done? Was a procedure done?: No Differential Diagnosis Multiple Trauma: Closed Head Injury, Fractures, Abrasions, Contusion, Hematoma X-Ray, Labs, Meds, VS Vital Signs Date Time Temp Pulse Resp B/P (MAP) Pulse Ox O2 Delivery O2 Flow Rate FiO2 03/14/25 10:40 98.2 75 18 156/99 (118) 98 98.2 CAT scan maxillofacial shows: IMPRESSION: 1. No evidence of acute facial bone fracture. 2. Moderate right periorbital hematoma. No orbital hematoma. Globes and orbital structures are otherwise intact. 3. 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 4. Additional findings as described above. At this time, the patient is being discharged and will follow up with the primary care doctor The patient will return to the emergency department's condition worsens The patient was given head trauma instructions Images Reviewed?: Images reviewed and evaluated by me Time of 1ST Reevaluation: 11:30 Reevaluation 1ST: Unchanged Patient Education/Counseling: Diagnosis, Treatment, Prognosis, Need For Follow Up Family Education/Counseling: No Family Present Departure 1 Departure Time of Disposition: 11:47 Impression: Primary Impression: History of fall Additional Impressions: Periorbital hematoma Qualified Codes: H05.231 - Hemorrhage of right orbit Blunt head trauma Qualified Codes: S09.8XXA - Other specified injuries of head, initial encounter Disposition: HOME / SELF CARE / HOMELESS Condition: Fair Discharged With: Self Critical Care Note Critical Care Time?: No Stability Stability form required: No Heart Score Heart Score: Heart Score Response (Comments) Value History N/A 0 EKG N/A 0 Age N/A 0 Risk Factors N/A 0 Troponin N/A 0 Total 0 I personally scribed for HARRISON ASTUDILLO MD ([email or web address]) on 03/14/25 at 10:51. Electronically submitted by Sonam Rucker ([facility]). HARRISON ASTUDILLO MD Mar 14, 2025 10:51
--- NOTE | 2025-03-14 11:34 | DVH ---
CLINICAL INFORMATION: 84 years old, Male; trauma. TECHNIQUE: Axial CT images of the maxillofacial region were obtained without contrast. Coronal and sa gittal reformatted images were obtained, reviewed, and stored. One or more of the following dose redu ction techniques were used: Automated exposure control. Adjustment of mA and/or kV according to patie nt size. CTDIvol = 66.85 mGy DLP = 1545.08 mGy-cm COMPARISON: Correlation made to prior CT brain exam dated 10/08/2020. FINDINGS: The pterygoid plates and zygomatic arches are intact. Sinus maldonado and orbital maldonado are i ntact. 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 Right nasal bone is intact and otherwise unremarkable. Mandible is intact. Moderate arthritic changes of t he temporomandibular joints. No evidence of facial bone fracture. Moderate right periorbital hematoma and scalp hematoma. No orbital hemorrhage. Globes and orbital structures appear otherwise intact. In cidental note is made of a left lens prosthesis. Mild mucosal thickening of the paranasal sinuses. No significant soft tissue abnormality identified. 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 Multilevel fa cet and uncinate hypertrophy also noted with areas of likely moderate to severe neural foraminal sten osis. IMPRESSION: 1. No evidence of acute facial bone fracture. 2. Moderate right periorbital hematoma. No orbital hematoma. Globes and orbital structures are otherw ise intact. 3. 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 4. Additional findings as described above.
[2025-03-14 11:58] VITALS: BP 190/110; PULSE 76; RESP 16; TEMP 97; O2SAT 96
== END 2025-03-14 12:05 | disposition home or self-care (01) ==
LOC: ER 10:33
DX: S05.11XA Contusion of eyeball and orbital tissues, right eye, initial encounter (principal); S09.90XA Unspecified injury of head, initial encounter; F41.9 Anxiety disorder, unspecified; Z90.49 Acquired absence of other specified parts of digestive tract; Z98.890 Other specified postprocedural states; Z79.899 Other long term (current) drug therapy; Z88.6 Allergy status to analgesic agent; Z88.8 Allergy status to other drugs, medicaments and biological substances; W01.0XXA Fall on same level from slipping, tripping and stumbling without subsequent striking against object, initial encounter; Y93.89 Activity, other specified; Y92.098 Other place in other non-institutional residence as the place of occurrence of the external cause; Y99.8 Other external cause status
CPT/HCPCS: 70486

== ENCOUNTER 2025-07-11 17:59 | Emergency (ER) | payer OTHER ==
[~2025-07-11] VITALS: Ht 177.8 cm; Wt 88.1 kg
--- NOTE | 2025-07-11 18:40 | ED.PDOC ---
History of Present Illness HPI Comments 84 y/o M presents with c/c of on-and-off urine retention. Patient endorses on having symptoms since Jan, 2025. He comments on coming to the ED prior to his upcoming appointment with a urologist in July 2025, due to impatience. He takes Flow-max, currently, with last ED visit for same complaint on January 11, 2025. Denies any abdominal pain, dysuria, nausea, vomiting, or further acute symptoms. Chief Complaint: Urinary Time Seen by MD: 18:30 Primary Care Provider: VERONIQUE NEVES Reviewed Notes: Nurses Notes, Medications, Allergies Allergies: Coded Allergies: Aspirin (Verified Allergy, Unknown, 07/23/24) Lisinopril (Verified Adverse Reaction, Intermediate, 07/23/24) increased patients tinnitis, unable to tolerate Home Meds Active Scripts Amlodipine Besylate-Olmesartan (Sammy) 1 Tab Tab, 1 TAB PO DAILY, #90 TAB 1 Refill Prov:TONYA KHAN MD 07/11/25 Doxycycline (Monohydrate) (Doxycycline) 100 Mg Tab, 100 MG PO BID for 30 Days, #60 TAB Prov:TONYA KHAN MD 07/11/25 Nitrofurantoin Monohydrate Mac (Macrobid) 100 Mg Cap, 100 MG PO BID for 5 Days, #10 CAP Prov:JULIA MCWILLIAMS 01/25/25 Amlodipine Besylate (NORVASC TABLET) 5 Mg Tb, 1 TAB PO DAILY, #30 TAB 5 Refills Prov:KY ROMERO MD 07/07/20 Lisinopril (Lisinopril) 10 Mg Tab, 10 MG PO DAILY for 30 Days, #30 TAB Prov:KY ROMERO MD 07/07/20 Reported Medications Tamsulosin Hcl (Tamsulosin Hcl) 0.4 Mg Cap, 0.4 MG PO QPM, CAP 05/23/19 Information Source: Patient Mode of Arrival: Ambulatory Severity: Moderate Timing: Hours, Days, Months Duration: Since onset Prehospital treatment: None Past Medical History PAST MEDICAL HISTORY: Anxiety, HTN Surgical History: Appendectomy Family History Family History: Family hx of heart wilson Social History Smoker: Non-Smoker Alcohol: Denies ETOH Use Drugs: Denies Drug Use Lives In: Home All Other Systems: Reviewed and Negative (Comprhensive review of systems are negative unless stated in HPI) Physical Exam General Appearance: No Apparent Distress, Normal HEENT: Normal ENT Inspection, Pharynx Normal, TMs Normal Neck: Full Range of Motion, Non-Tender, Normal, Normal Inspection Respiratory: Chest Non-Tender, Lungs Clear, No Accessory Muscle Use, No Respiratory Distress, Normal Breath Sounds Cardiovascular: No Edema, No JVD, No Murmur, No Gallop, Normal Peripheral Pulses, Regular Rate/Rhythm Breast Exam: Deferred Gastrointestinal: No Organomegaly, Non Tender, No Pulsatile Mass, Normal Bowel Sounds, Soft Genitalia: Deferred Pelvic: Deferred Rectal: Deferred Extremities: No calf tenderness, Normal capillary refill, Normal inspection, Normal range of motion, Non-tender, No pedal edema Musculoskeletal : Apperance: Normal Neurologic: Alert, booking manager II-XII nml as Tested, No Motor Deficits, Normal Affect, Normal Mood, No Sensory Deficits Cerebellar Function: Normal Reflexes: Normal Skin: Dry, Normal Color, Warm Lymphatic: No Adenopathy Was a procedure done? Was a procedure done?: No Differential Dx Considerations may include: UTI, ureteral stone obstruction, nephrolithiasis, BPH, among others X-Ray, Labs, Meds, VS Vital Signs Date Time Temp Pulse Resp B/P (MAP) Pulse Ox O2 Delivery O2 Flow Rate FiO2 07/11/25 19:47 79 19 96 Room Air 07/11/25 19:47 98.4 79 19 222/110 (147) 96 98.4 07/11/25 18:01 97.6 81 20 172/109 96 97.6 Lab Test 07/11/25 18:43 Range/Units Urine Color Light-yellow Yellow Urine Clarity Clear Clear Urine pH 6.0 5.0-9.0 Urine Specific [place] 1.014 1.001-1.035 Urine Protein Negative Negative Urine Ketones Negative Negative Urine Blood Negative Negative /uL Urine Nitrite Negative Negative Urine Bilirubin Negative Negative Urine Urobilinogen Normal Negative mg/dL Urine Leukocyte Esterase Negative Negative /uL Urine RBC 1 0 - 3 /hpf Urine Microscopic WBC 1 0-3 /HPF Urine Squamous Epithelial Cells Few <5 /hpf Urine Bacteria None seen None Seen /hpf Urine Glucose Normal Normal mg/dL Current Medications Medications (Trade) Dose Ordered Sig/Kalie Route Start Time Stop Time Status Last Admin Phenazopyridine HCl (Pyridium Tablet) 200 mg ONCE ONCE PO 07/11/25 19:15 07/11/25 19:16 DC 07/11/25 19:36 Ceftriaxone Sodium (Rocephin) 1,000 mg ONCE ONCE IM 07/11/25 19:30 07/11/25 19:31 DC 07/11/25 19:34 Time of 1ST Reevaluation: 19:00 Reevaluation 1ST: Unchanged Patient Education/Counseling: Diagnosis, Treatment, Need For Follow Up Family Education/Counseling: No Family Present SEPSIS Sepsis Screen Date sepsis recognized/suspect: Jul 11, 2025 Time Sepsis recognized/suspect: 1803 Recent Procedure: No On Antibiotic Therapy: No Respiratory Rate >20: No Heart Rate >90: No Temp<36 C (96.8 F) or >38.3 C: No SBP <90 or MAP <65 mmHG: No New Acute Mental Status Change: No Is the patient on CPAP, BIPAP,: No Vital Signs Date Time Temp Pulse Resp B/P (MAP) Pulse Ox O2 Delivery O2 Flow Rate FiO2 07/11/25 19:47 79 19 96 Room Air 07/11/25 19:47 98.4 79 19 222/110 (147) 96 98.4 07/11/25 18:01 97.6 81 20 172/109 96 97.6 Medications Medications Dose Ordered Sig/Kalie Route Start Time Stop Time Status Last Admin Dose Admin Ceftriaxone Sodium 1,000 mg ONCE ONCE IM 07/11/25 19:30 07/11/25 19:31 DC 07/11/25 19:34 Phenazopyridine HCl 200 mg ONCE ONCE PO 07/11/25 19:15 07/11/25 19:16 DC 07/11/25 19:36 Departure 1 Departure Time of Disposition: 20:30 Impression: Primary Impression: Prostatitis Disposition: 01 HOME / SELF CARE / HOMELESS Condition: Stable e-Prescriptions Amlodipine Besylate-Olmesartan (Sammy) 1 Tab Tab 1 TAB PO DAILY, #90 TAB 1 Refill Prov: TONYA KHAN MD 07/11/25 Doxycycline (Monohydrate) (Doxycycline) 100 Mg Tab 100 MG PO BID for 30 Days, #60 TAB Prov: TONYA KHAN MD 07/11/25 Discharged With: Self Critical Care Note Critical Care Time?: No Stability Stability form required: No Heart Score Heart Score: Heart Score Response (Comments) Value History N/A 0 EKG N/A 0 Age N/A 0 Risk Factors N/A 0 Troponin N/A 0 Total 0 I personally scribed for TONYA KHAN MD ([email or web address]) on 07/11/25 at 18:40. Electronically submitted by Andrew Alexander [email or web address]). TONYA KHAN MD Jul 11, 2025 18:40
[2025-07-11 18:55] LABS: Urine Protein, UAD Negative (Negative)
[2025-07-11] MEDS ORDERED: DOXY-346 PO (19:14)
[2025-07-11] MEDS ORDERED: cefTRIAXone W LIDOCAINE 500 MG IM IM ONE (19:15)
[2025-07-11] MEDS ORDERED: [UNRECOGNIZED DRUG - CODE] PO (19:16)
[2025-07-11] MEDS: cefTRIAXone SOD 1,000 MG VL IM ONE (19:34)
[2025-07-11] MEDS: PHENAZOPYRIDINE HCL 100 MG TAB PO ONE (19:36)
[2025-07-11 19:47] VITALS: BP 222/110; PULSE 79; RESP 19; TEMP 98.4; O2SAT 96
== END 2025-07-11 19:54 | disposition home or self-care (01) ==
LOC: ER 18:02
DX: N41.9 Inflammatory disease of prostate, unspecified (principal); F41.9 Anxiety disorder, unspecified; I10 Essential (primary) hypertension; Z79.899 Other long term (current) drug therapy; Z88.6 Allergy status to analgesic agent; Z88.8 Allergy status to other drugs, medicaments and biological substances; Z90.49 Acquired absence of other specified parts of digestive tract
CPT/HCPCS: 81001; 96372; 99283; J0696